=== PATIENT | male | born 1985 | race Two or more races ===

== ENCOUNTER 2017-01-16 05:36 | Inpatient (IN) | payer MEDICAID ==
[2017-01-16] VITALS (42 sets, daily range): BP systolic 100–148; BP diastolic 46–106
[~2017-01-16] VITALS: Ht 193 cm; Wt 88.9 kg
[~2017-01-16 05:36] MED LIST: MULT-1146 PO
[2017-01-16 06:26] LABS: CLARITY URINE CLEAR (CLEAR); COLOR URINE YELLOW (YELLOW); GLUCOSE URINE NEGATIVE (NEGATIVE); KETONES URINE NEGATIVE (NEGATIVE); LEUKOCYTE ESTERASE URINE NEGATIVE (NEGATIVE); NITRITE URINE NEGATIVE (NEGATIVE); OCCULT BLOOD URINE NEGATIVE (NEGATIVE); PH URINE 5.5 (4.5-8.0); PROTEIN URINE NEGATIVE (NEGATIVE); SPECIFIC GRAVITY URINE 1.026 (1.005-1.030)
[2017-01-16] MEDS ORDERED: SODIUM CHLORIDE 0.9% 1,000 ML IV SCH (06:30)
[2017-01-16] MEDS ORDERED: LACTATED RINGERS 1,000 ML IV SCH (06:30)
[2017-01-16 06:32] LABS: BASOPHILS % 1.3 % (0.0-2.0); HEMATOCRIT. 45.5 % (42.0-52.0); HEMOGLOBIN. 15.5 g/dL (14.0-18.0); LYMPHOCYTES % 27.2 % (20.0-50.0); MEAN CORPUSCULAR HEMOGLOBIN 31.8 pg (28.0-32.0); MEAN CORPUSCULAR VOLUME 93.2 fL (80.0-94.0); MEAN PLATELET VOLUME 8.7 fl (7.4-10.4); MONOCYTES % 11.3 % (2.0-8.0); NEUTROPHILS % 58.2 % (40.0-76.0); PLATELET 210 x1000/uL (130-400); RED BLOOD CELL COUNT 4.88 mill/uL (4.7-6.1); RED CELL DISTRIBUTION WIDTH 12.7 % (11.6-14.6)
[2017-01-16 06:38] LABS: CARBON DIOXIDE 26 mEq/L (21-32); CHLORIDE 111 mEq/L (98-107)
[2017-01-16] MEDS ORDERED: LIDOCAINE HCL 1%/EPI 1:200,000 30 ML VIAL ONE ×2 (06:49→06:51)
[2017-01-16] MEDS ORDERED: GELATIN SPONGE,ABSORBABLE SZ 100 ONE (06:49)
[2017-01-16] MEDS ORDERED: NORMAL SALINE 0.9% 10 ML SYR ONE (06:49)
[2017-01-16] MEDS ORDERED: THROMBIN (BOVINE) 5000 UNITS/VIAL TOP ONE ×2 (06:49→06:50)
[2017-01-16] MEDS ORDERED: BACITRACIN 50,000 UNITS/VIAL ONE (06:50)
[2017-01-16] MEDS ORDERED: FENTANYL CITRATE/PF 50MCG/ML 2ML VIAL ONE (07:25)
[2017-01-16] MEDS ORDERED: MIDAZOLAM HCL 2 MG/2 ML VIAL ONE (07:25)
[2017-01-16] MEDS ORDERED: HYDROMORPHONE HCL/PF 2MG/ML (OR) ONE (07:54)
[2017-01-16] MEDS ORDERED: LABETALOL 5MG/ML SYR 20 MG/4 ML SYRINGE IV PRN (09:15)
[2017-01-16] MEDS ORDERED: ONDANSETRON HCL 4MG/2ML VIAL IV PRN ×3 (09:15→10:00)
[2017-01-16] MEDS ORDERED: LABETALOL HCL 20MG/4ML CARPUJECT IV PRN (09:15)
[2017-01-16] MEDS ORDERED: MEPERIDINE HCL/PF 25MG/ML CPJ IV PRN ×2 (09:15)
[2017-01-16] MEDS ORDERED: HYDROMORPHONE HCL/PF 2MG/ML CPJ IV PRN ×2 (09:15)
[2017-01-16] MEDS ORDERED: PROPOFOL 200MG/20ML VIAL IV ONE (09:27)
[2017-01-16] MEDS ORDERED: SUCCINYLCHOLINE CHLORIDE 200MG/10ML VIAL IV ONE (09:27)
[2017-01-16] MEDS ORDERED: CEFAZOLIN SODIUM 1000MG/VIAL ONE (09:27)
[2017-01-16] MEDS ORDERED: SODIUM CHLORIDE 0.9% 10ML VIAL ONE (09:27)
[2017-01-16] MEDS ORDERED: ROCURONIUM BROMIDE 10MG/ML VIAL 5ML IV ONE (09:27)
[2017-01-16] MEDS ORDERED: LIDOCAINE HCL 1% 20ML VIAL (Pyxis) INJ ONE (09:27)
[2017-01-16] MEDS ORDERED: GLYCOPYRROLATE 0.2 MG/ML 2ML VIAL ONE (09:28)
[2017-01-16] MEDS ORDERED: NEOSTIGMINE METHYLSULFATE 1MG/ML 10 ML VIAL ONE (09:28)
[2017-01-16] MEDS ORDERED: DEXAMETHASONE 4MG/ML 1ML VIAL ONE (09:28)
[2017-01-16] MEDS ORDERED: IPRATROPIUM/ALBUTEROL 0.5-3(2.5)MG/3ML NEB INH PRN (10:00)
[2017-01-16] MEDS ORDERED: NICARDIPINE 50 MG in SODIUM CHLORIDE 0.9% 230 ML IV PRN (10:00)
[2017-01-16] MEDS ORDERED: ACETAMINOPHEN 325MG TABLET PO PRN (10:00)
[2017-01-16] MEDS ORDERED: DIPHENHYDRAMINE INJ IV PRN (11:00)
[2017-01-16] MEDS ORDERED: NALOXONE INJ IV PRN (11:00)
[2017-01-16] MEDS ORDERED: ONDANSETRON INJ IV PRN (11:00)
[2017-01-16] MEDS: HYDROMORPHONE PCA 10MG/50ML IV PRN (11:20)
[2017-01-16] MEDS: DEXT 5%/LACTATED RINGERS 1,000 ML IV SCH ×2 (11:36→20:41)
[2017-01-16] MEDS: DEXAMETHASONE 4MG/ML 1ML VIAL IV SCH ×3 (12:36→23:04)
[2017-01-16] MEDS: CEFAZOLIN 1000MG PREMIX 50 ML IV SCH ×2 (13:55→21:30)
[2017-01-16] MEDS ORDERED: CEFAZOLIN SODIUM 1000MG/VIAL IV SCH (14:00)
[2017-01-16] MEDS: DIPHENHYDRAMINE 50MG/ML VIAL IV PRN (20:16)
[2017-01-17] VITALS (31 sets, daily range): BP systolic 80–162; BP diastolic 46–97
[2017-01-17] MEDS: DIPHENHYDRAMINE 50MG/ML VIAL IV PRN ×3 (00:36→17:26)
[2017-01-17] MEDS: HYDROMORPHONE PCA 10MG/50ML IV PRN (05:50)
[2017-01-17 05:59] LABS: HEMOGLOBIN. 14.3 g/dL (14.0-18.0); MEAN CORPUSCULAR HEMOGLOBIN 31.4 pg (28.0-32.0); MEAN CORPUSCULAR VOLUME 94.3 fL (80.0-94.0); MEAN PLATELET VOLUME 9.2 fl (7.4-10.4); PLATELET 209 x1000/uL (130-400); RED BLOOD CELL COUNT 4.55 mill/uL (4.7-6.1); RED CELL DISTRIBUTION WIDTH 12.8 % (11.6-14.6)
[2017-01-17] MEDS: DEXAMETHASONE 4MG/ML 1ML VIAL IV SCH ×2 (06:06→12:41)
[2017-01-17] MEDS: CEFAZOLIN 1000MG PREMIX 50 ML IV SCH (06:06)
[2017-01-17 06:34] LABS: CARBON DIOXIDE 28 mEq/L (21-32); CHLORIDE 105 mEq/L (98-107)
[2017-01-17 08:59] LABS: PLATELET ESTIMATE NORMAL
[2017-01-17] MEDS: DEXT 5%/LACTATED RINGERS 1,000 ML IV SCH (09:39)
[2017-01-17] MEDS: DOCUSATE SODIUM 100MG CAPSULE PO SCH (17:26)
[2017-01-17] MEDS: MORPHINE SULFATE 4 MG/ML CPJ (NOT FOR IM USE) IV PRN (20:27)
[2017-01-18 04:00] VITALS: BP 108/51
[2017-01-18 08:00] VITALS: BP 117/55
[2017-01-18] MEDS: DOCUSATE SODIUM 100MG CAPSULE PO SCH (08:36)
[2017-01-18] MEDS: MORPHINE SULFATE 4 MG/ML CPJ (NOT FOR IM USE) IV PRN ×2 (08:37→14:05)
[2017-01-18 12:00] VITALS: BP 109/64
[2017-01-18] MEDS ORDERED: HYDR-523 PO (14:10)
[2017-01-18 14:15] VITALS: BP 109/64
== END 2017-01-18 15:30 | disposition home or self-care (01) | DRG 321 ==
LOC: OR 05:36 → MICUNO 05:37 → 6EST 01-17 23:05
PROVIDERS: ADMIT Neurological Surgery; ATTEND Neurological Surgery
PROC: 0RB30ZZ Excision of Cervical Vertebral Disc, Open Approach (ICD-10-PCS; 2017-01-16)
PROC: 0RG20K0 Fusion of 2 or more Cervical Vertebral Joints with Nonautologous Tissue Substitute, Anterior Approach, Anterior Column, Open Approach (ICD-10-PCS; principal; 2017-01-16 07:30)
DX: M48.02 Spinal stenosis, cervical region (principal); G82.50 Quadriplegia, unspecified; M50.022 Cervical disc disorder at C5-C6 level with myelopathy; M50.023 Cervical disc disorder at C6-C7 level with myelopathy
CPT/HCPCS: 36415; 71010; 72040; 72141; 80048; 81003; 85025; 86850; 86900; 88304; 88311; 93970; 95925; 95926; 95928; 97116; 97162; 97166; 97530; 97535; A4216; C1713; J0330; J0690; J1100; J1170; J1200; J2250; J2270; J2405; J2704; J2710; J3010; J3490; J7030; J7121; L0172